=== PATIENT | female | born 1995 | race African-American/Black ===

== ENCOUNTER 2017-05-09 15:25 | Emergency (ER) | payer SELFPAY ==
[2017-05-09 15:30] VITALS: BP 111/69; BMI 23.8
--- NOTE | 2017-05-09 16:02 | ED.ABDFE ---
HPI - Time seen Time seen: 16:00 - PCP Primary Care Physician: KARELY - HPI Comment HPI Comment: HISTORY BELOW. - Complaint Chief Complaint Doctors Comments: ABDOMINAL PAIN, CRAMPING INTERMITTENT FOR WEEKS. WORSE TODAY. STARTED ONE MONTH AGO WITH HER MENSTRUATION. SHE ALSO HAVE HER PERIOD NOW, THE SECOND THIS MONTH. NO FEVER OR DYSURIA. DENIES VAGINAL DISCHARGE. NAUSEATED BUT NOT VOMITING. HAD NORMAL BM TODAY. PAIN SEVERE TODAY. Chief Complaint:: PT C/O ABD PAIN FOR A MONTH AND IT GOT WORSE TODAY AND SHE GOT IN THE CAR TO COME AND SHE COULD NOT SO SHE CALLED EMS .. PT THOUGHT PAIN WAS DUE TO HER PERIOD LAST MONTH ,, - Nurses notes reviewed Nurses Notes Review: Yes - Source History Provided: Patient - Mode of arrival Mode of Arrival: EMS - Timing Onset of Chief Complaint: 05/09/17 Came on: Gradually - Duration Duration: Intermittent Duration: Weeks - Location Location: RLQ, LLQ, Suprapubic - Severity Severity: Moderate - Quality Quality: Cramping - Context Onset: Suddenly History of: None - Modifying Worsening Factors: Nothing Improving Factors: Nothing - Associated signs and symptoms Associated Signs and Symptoms: Nausea PMH - PMH Past Medical History: No Past Medical History: Anemia, Depression, Headaches Past Surgical History: No Surgical History: No History - Family History History of Family Medical Conditions: No Family Medical History: Diabetes Mellitus, Hypertension - Social History Does patient currently use any type of tobacco product: No Type of Tobacco Use: Cigarettes How many years tobacco product used: 3 Does any household member use tobacco: No Alcohol Use: None Do you use any recreational Drugs:: No Lives With: Family Lives Where: Home - infectious screening In the last 2 months have you had wt loss of >10#?: NO Have you had fever, night sweats or hemotysis?: No Have you traveled outside the country in the last 6 months?: No ROS - Review of Systems Constitutional: No Symptoms Reported Eyes: No Symptoms Reported ENTM: No Symptoms Reported Respiratoy: No Symptoms Reported Cardiovascular: No Symptoms Reported Gastrointestinal/Abdominal: Abdominal Pain, Nausea Genitourinary: No Symptoms Reported. negative: Dysuria, Frequency, Hematuria Neurological: No Symptoms Reported Musculoskeletal: No Symptoms Reported Integumentary: No Symptoms Reported Hematologic/Lymphatic: No Symptoms Reported Endocrine: No Symptoms Reported All Other Systems: Reviewed and Negative PE - Vital Signs Vitals: Temperature 97.4 F Pulse Rate 93 Respiratory Rate 18 Blood Pressure [Left Arm] 94/57 Blood Pressure 111/69 - General Limitations: No Limitations General Appearance: Alert - Head Head Exam: Normal Inspection - Eyes Eye exam: Normal Appearance - ENT ENT Exam: Normal External Ear Exam - Neck Neck Exam: Trachea Midline - Chest Chest Inspection: Symmetric Chest Wall Rise - Respiratory Respiratory Exam: Normal Lung Sounds Bilat Respiratory Exam: Bilateral Clear to Auscultation - Cardiovascular Cardiovascular Exam: Regular Rate, Normal Rhythm, Normal Heart Sounds - Abdominal Exam Abdominal Exam: Normal Bowel Sounds, Soft, Tenderness Abdominal Tenderness: RLQ, LLQ, Suprapubic - Rectal Rectal Exam: Deferred - Back Back Exam: Normal Inspection - Extremeties Extremities Exam: Normal Inspection - External Exam: Female: Deferred : Speculum Exam (Female): Deferred : Bimanual Exam (female): Deferred - Neurologic Neurological Exam: Alert, Oriented X3 - Psychiatric Psychiatric Exam: Normal Affect, Normal Mood - Skin Skin Exam: Normal Color MDM - Additional Information Obtained From Additional information provided by: Family - Differential Diagnosis Differential Diagnosis- Considerations may include:: Bowel Obstruction, Diverticular disease, Ovarian cyst/torsion, Urinary tract infection, Urolithiasis Other differential diagnosis: PID Course - Treatment Treatment: SEE ORDERS. PATIENT SIGN OUT AMA BEFORE EVALUATION COMPLETED. NURSE CALLED PATIENT AND ENCOURAGE HER TO RETURN AND BE TREATED FOR POSITIVE GC. PATIENT NOT TREATED IN ED FOR HER DIAGNOSIS. - Education/Counseling Education/Counseling: Patient, Education Educated On: Needs for Follow Up ROR - Labs Reviewed Laboratory Results Reviewed?: Yes Result Diagrams: 05/09/17 16:10 05/09/17 16:10 Laboratory: WBC 11.0 X10^3/uL (3.6-10.0) H 05/09/17 16:10 RBC 5.45 X10^6/uL (3.5-5.4) H 05/09/17 16:10 Hgb 11.9 g/dL (12.0-16.0) L 05/09/17 16:10 Hct 36.6 % (36.0-47.0) 05/09/17 16:10 MCV 67.2 fL (80.0-100.0) L 05/09/17 16:10 MCH 21.8 pg (27.0-34.0) L 05/09/17 16:10 MCHC 32.5 g/dL (33.0-35.0) L 05/09/17 16:10 RDW 16.8 % (11.6-16.5) H 05/09/17 16:10 Plt Count 330 X10^3/uL (150.0-450.0) 05/09/17 16:10 Plt Count Comment Adequate (ADEQUATE) 05/09/17 16:10 MPV 10.1 fL (7.4-11.0) 05/09/17 16:10 Neut % 79.1 % (42.0-75.0) H 05/09/17 16:10 Lymph % 13.6 % (21.0-51.0) L 05/09/17 16:10 [place] % 5.4 % (0.0-13.0) 05/09/17 16:10 Eos % 1.2 % (0.9-2.9) 05/09/17 16:10 Baso % 0.7 % (0.2-1.0) 05/09/17 16:10 Neut # 8.7 x10^3/uL (2.2-4.8) H 05/09/17 16:10 Lymph # 1.5 X10^3/uL (1.3-2.9) 05/09/17 16:10 [place] # 0.6 x10^3/uL (0.3-0.8) 05/09/17 16:10 Eos # 0.1 x10^3/uL (0.0-0.2) 05/09/17 16:10 Baso # 0.1 X10^3/uL (0.0-0.1) 05/09/17 16:10 Absolute Nucleated RBC 0.0 /100WBC 05/09/17 16:10 Plt Morphology Comment Normal (NORMAL) 05/09/17 16:10 RBC Morphology Abnormal (NORMAL) A 05/09/17 16:10 Hypochromasia 1+ A 05/09/17 16:10 Microcytosis 1+ A 05/09/17 16:10 Sodium 142 mmol/L (136-145) 05/09/17 16:10 Corrected Sodium TNP 05/09/17 16:10 Potassium 3.9 mmol/L (3.5-5.1) 05/09/17 16:10 Chloride 104 mmol/L (98-107) 05/09/17 16:10 Carbon Dioxide 30.2 mmol/L (21-32) 05/09/17 16:10 BUN 5 mg/dL (7-18) L 05/09/17 16:10 Creatinine 0.84 mg/dL (0.55-1.02) 05/09/17 16:10 Est GFR (MDRD) Af Amer > 60 (>60) 05/09/17 16:10 Est GFR (MDRD) Non-Af > 60 (>60) 05/09/17 16:10 Glucose 94 mg/dL (65-99) 05/09/17 16:10 Calcium 9.4 mg/dL (8.5-10.1) 05/09/17 16:10 Corrected Calcium TNP 05/09/17 16:10 Total Bilirubin 0.20 mg/dL (0.2-1.0) 05/09/17 16:10 AST 10 Units/L (15-37) L 05/09/17 16:10 ALT 14 Units/L (12-78) 05/09/17 16:10 Alkaline Phosphatase 100 Units/L (46-116) 05/09/17 16:10 Total Protein 8.5 g/dL (6.4-8.2) H 05/09/17 16:10 Albumin 3.8 g/dL (3.4-5.0) 05/09/17 16:10 Globulin 4.7 g/dL (2.5-4.5) H 05/09/17 16:10 Albumin/Globulin Ratio 0.8 Ratio (1.1-2.1) L 05/09/17 16:10 HCG, Qual Negative <10 mIU/mL 05/09/17 16:10 Specimen Type Random urine 05/09/17 17:02 Urine Color Yellow (YELLOW) 05/09/17 17:02 Urine Appearance Hazy (CLEAR) 05/09/17 17:02 Urine pH 9.0 (5.0 - 8.0) 05/09/17 17:02 Ur Specific [place] 1.015 (1.000-1.030) 05/09/17 17:02 Urine Protein 2+ (NEGATIVE) 05/09/17 17:02 Urine Glucose (UA) Negative (NEGATIVE) 05/09/17 17:02 Urine Ketones Negative (NEGATIVE) 05/09/17 17:02 Urine Occult Blood 5+ (NEGATIVE) 05/09/17 17:02 Urine Nitrite Negative (NEGATIVE) 05/09/17 17:02 Urine Bilirubin Negative (NEGATIVE) 05/09/17 17:02 Urine Urobilinogen 1+ (NORMAL) 05/09/17 17:02 Ur Leukocyte Esterase 2+ (NEGATIVE) 05/09/17 17:02 Urine RBC Tntc /HPF (NEGATIVE) 05/09/17 17:02 Urine WBC 02 - 05 /HPF (NEGATIVE) 05/09/17 17:02 Ur Squamous Epith Cells Many /HPF (NEGATIVE) 05/09/17 17:02 Amorphous Sediment 2+ /HPF (NEGATIVE) 05/09/17 17:02 Urine Bacteria Trace /HPF (NEGATIVE) 05/09/17 17:02 Ur Culture Indicated? No/not indicated 05/09/17 17:02 Ur C. trach DNA (PCR) Not detected (NOT DETECT) 05/09/17 15:59 U N.gonorrhoeae DNA PCR Detected (NOT DETECT) A 05/09/17 15:59 - Diagnosis Discharge Problem: Gonorrhea, PID (acute pelvic inflammatory disease) Abdominal pain Qualifiers: Abdominal location: lower abdomen, unspecified Qualified Code(s): R10.30 - Lower abdominal pain, unspecified - Discharge Plan Disposition: 07 AGAINST MEDICAL ADVICE Condition: Stable - Follow ups/Referrals Follow ups/Referrals: NFD,None [Primary Care Provider] - 3 days - Instructions
[2017-05-09 16:17] LABS: BASOPHILS # (AUTO) 0.1 X10^3/uL (0.0-0.1); BASOPHILS % (AUTO) 0.7 % (0.2-1.0); EOSINOPHILS # (AUTO) 0.1 x10^3/uL (0.0-0.2); EOSINOPHILS % (AUTO) 1.2 % (0.9-2.9); HEMATOCRIT 36.6 % (36.0-47.0); HEMOGLOBIN 11.9 g/dL (12.0-16.0); LYMPHOCYTES # (AUTO) 1.5 X10^3/uL (1.3-2.9); LYMPHOCYTES % (AUTO) 13.6 % (21.0-51.0); MEAN CORPUSCULAR HEMOGLOBIN 21.8 pg (27.0-34.0); MEAN CORPUSCULAR HGB CONC 32.5 g/dL (33.0-35.0); MEAN CORPUSCULAR VOLUME 67.2 fL (80.0-100.0); MEAN PLATELET VOLUME 10.1 fL (7.4-11.0); MONOCYTES # (AUTO) 0.6 x10^3/uL (0.3-0.8); MONOCYTES % (AUTO) 5.4 % (0.0-13.0); NEUTROPHILS # (AUTO) 8.7 x10^3/uL (2.2-4.8); NEUTROPHILS % (AUTO) 79.1 % (42.0-75.0); PLATELET COUNT 330 X10^3/uL (150.0-450.0); RED BLOOD COUNT 5.45 X10^6/uL (3.5-5.4); RED CELL DISTRIBUTION WIDTH 16.8 % (11.6-16.5)
[2017-05-09 16:32] LABS: ALANINE AMINOTRANSFERASE 14 Units/L (12-78); ALBUMIN 3.8 g/dL (3.4-5.0); ALKALINE PHOSPHATASE 100 Units/L (46-116); ASPARTATE AMINO TRANSFERASE 10 Units/L (15-37); BLOOD UREA NITROGEN 5 mg/dL (7-18); CALCIUM 9.4 mg/dL (8.5-10.1); CARBON DIOXIDE 30.2 mmol/L (21-32); CHLORIDE 104 mmol/L (98-107); CREATININE 0.84 mg/dL (0.55-1.02); SODIUM 142 mmol/L (136-145); TOTAL PROTEIN 8.5 g/dL (6.4-8.2); eGFR BLACK RACES > 60 (>60); eGFR NON BLACK RACES > 60 (>60)
[2017-05-09 16:35] LABS: HYPOCHROMASIA 1+; MICROCYTOSIS 1+; PLATELET MORPHOLOGY COMMENT NORMAL (NORMAL)
[2017-05-09 16:39] LABS: SERUM PREGNANCY TEST, QUAL NEGATIVE <10 mIU/mL
[2017-05-09 17:24] LABS: BILIRUBIN,URINE NEGATIVE (NEGATIVE); BLOOD/HEMOGLOBIN,URINE 5+ (NEGATIVE); GLUCOSE, URINE NEGATIVE (NEGATIVE); KETONES,URINE NEGATIVE (NEGATIVE); LEUKOCYTE ESTERASE ,URINE 2+ (NEGATIVE); NITRITES,URINE NEGATIVE (NEGATIVE); PROTEIN,URINE 2+ (NEGATIVE); UROBILINOGEN,URINE 1+ (NORMAL)
[2017-05-09 18:03] LABS: APPEARANCE,URINE HAZY (CLEAR); COLOR,URINE YELLOW (YELLOW)
[2017-05-09 18:10] LABS: RBC,URINE TNTC /HPF (NEGATIVE); SQUAMOUS EPITHELIAL CELL,UR MANY /HPF (NEGATIVE)
[2017-05-09 18:11] LABS: AMORPHOUS SEDIMENT,UR 2+ /HPF (NEGATIVE); BACTERIA,URINE TRACE /HPF (NEGATIVE)
[2017-05-09 19:17] LABS: CHLAMYDIA TRACH URINE NOT DETECTED (NOT DETECT)
--- NOTE | 2017-05-09 21:14 | RAD ---
HISTORY: Pain Study: Acute abdominal series Comparison: None 07/31/2016 Findings: The trachea is midline. The cardiac silhouette is unremarkable. The lungs are clear without focal i nfiltrate or effusion. The bony thorax is unremarkable. Flat plate and upright evaluation of the abdomen demonstrates a normal bowel gas pattern. No patholo gical soft tissue mass or calcification can be observed. The bony structures are grossly intact. IMPRESSION: 1. No acute cardiopulmonary disease. 2. No evidence for acute abdominal pathology identified. Reported By:
== END 2017-05-09 17:47 | disposition left against medical advice (07) ==
LOC: ER 15:25
DX: R10.31 Right lower quadrant pain (principal); A54.9 Gonococcal infection, unspecified; N73.9 Female pelvic inflammatory disease, unspecified
CPT/HCPCS: 36415; 74022; 80053; 81001; 84703; 85025; 87491; 87591; 99283